=== PATIENT | male | born 1935 | race Caucasian/White ===

== ENCOUNTER 2017-04-29 02:31 | Inpatient (IN) | payer OTHER ==
[~2017-04-29] VITALS: Ht 182.9 cm; Wt 98.3 kg
[~2017-04-29 02:31] MED LIST: ACTOS45 MG PO; ANUSOL-HC21 GM PR; ARTIFICIAL TEAR15 M1 BOTH EYES; ASPIRIN81 M2 PO; Aspirin EC PO; CELEBREX200 MG PO; COBAL-10001000 MCG/2 IM; CRESTOR5 MG PO; CYANOCOBALAM1000 MCG PO; FEOSOL325 MG PO; GLUCOPHAGE850 MG PO; GLUCOTROL XL5 MG PO; Glucophage PO; Hytrin PO; KENLAOG,ARISTOC60 ML TP; LIDODERM 5% P1 PATCH TD; LIPITOR20 MG PO; LISINOPRIL20 MG PO; LOPRESSOR25 MG PO; MELOXICAM7.5 MG PO; MIRALAX PO; MUSE1000 MCG UR; NEURONTIN300 MG PO; NEXIUM40 MG PO; NITROGLYCERIN0.4 MG SL; PANTOPRAZOLE SO40 MG PO; PAXIL20 MG PO; PRAVACHOL40 MG PO; Plavix PO; ULTRAM50 MG PO; VITAMIN D31000 UNIT PO; ZESTRIL,PRINIVI10 M1 PO
[2017-04-29 02:59] LABS: HEMATOCRIT 43.5 % (38.0-50.0); HEMOGLOBIN 14.9 G/DL (12.5-16.6); MCH 31.6 PG (29.0-34.0); MCHC 34.3 G/DL (30.0-36.0); MCV 92.4 FL (86-99); RBC DIS.WIDTH-CV 12.4 % (11.8-14.6); RBC DIS.WIDTH-SD 42.5 % (39-53); RED BLOOD COUNT 4.71 M/uL (4.00-5.50); WHITE BLOOD COUNT 7.9 K/uL (4.1-10.2)
[2017-04-29 03:13] LABS: ALBUMIN 4.3 g/dL (3.2-4.8); CHLORIDE 102 mEq/L (99-109); POTASSIUM 3.7 mEq/L (3.7-5.4); SODIUM 142 mEq/L (136-147)
[2017-04-29 03:15] LABS: GLUCOSE 247 mg/dL (70-99); TOTAL PROTEIN 6.6 g/dL (6.4-8.3)
[2017-04-29 03:17] LABS: TOTAL BILIRUBIN 4.2 mg/dL (0.0-1.0)
[2017-04-29 03:19] LABS: ALKALINE PHOSPHATASE 120 IU/L (3-129); GFR ESTIMATE (CALCULATED) > 59 mL/min/ (58.99-99999)
[2017-04-29 03:20] LABS: UREA NITROGEN (BUN) 20 mg/dL (9-23)
[2017-04-29 03:21] LABS: AST (GOT) 442 IU/L (2-34)
[2017-04-29 03:22] LABS: ALT (GPT) 258 IU/L (3-49); LIPASE 952 U/L (1.0-51.0)
[2017-04-29 03:28] LABS: TROP-I INTERPRETATION NEGATIVE; TROPONIN-I < 0.01 ng/mL (0.0-0.30)
[2017-04-29 03:39] LABS: PLAT.SUFFICIENCY DECREASED; PLATELET COUNT 140 K/uL (156-360)
[2017-04-29] MEDS ORDERED: TYLENOL EXTRA500 MG PO (07:54)
[2017-04-29] MEDS ORDERED: AMMONIUM LACTA224 GM TP (07:58)
[2017-04-29] MEDS ORDERED: MAGNESIUM400 M1 PO (08:00)
[2017-04-29] MEDS ORDERED: ONGLYZA2.5 MG PO (08:02)
[2017-04-29] MEDS ORDERED: UREA85 GM TP (08:03)
[2017-04-29] MEDS ORDERED: GLUCOTROL10 MG PO (08:05)
[2017-04-29] MEDS ORDERED: SINEMET 25-1001 EACH PO (08:06)
[2017-04-29 12:01] VITALS: BP 103/60
[2017-04-29 14:59] LABS: TROP-I INTERPRETATION NEGATIVE; TROPONIN-I < 0.01 ng/mL (0.0-0.30)
[2017-04-29 17:06] VITALS: BP 115/53
[2017-04-29 20:10] VITALS: BP 112/54
[2017-04-29 23:26] VITALS: BP 104/52
[2017-04-30 03:00] VITALS: BP 109/52
[2017-04-30 06:45] LABS: INTER. NORMALIZED RATIO 1.3
[2017-04-30 06:49] LABS: BASOPHIL (%) 0.1 % (0-1); EOSINOPHIL (%) 0.7 % (0-5); EOSINOPHIL COUNT 0.1 K/uL (0-0.3); HEMATOCRIT 35.4 % (38.0-50.0); IMMATURE GRANULOCYTE (%) 0.4 % (0.0-0.7); LYMPHOCYTE (%) 8.8 % (15-42); LYMPHOCYTE COUNT 0.8 K/uL (1.0-2.8); MCH 31.4 PG (29.0-34.0); MCHC 33.3 G/DL (30.0-36.0); MCV 94.1 FL (86-99); MONOCYTE (%) 5.7 % (3-12); MONOCYTE COUNT 0.5 K/uL (0-0.8); NEUTROPHIL (%) 84.3 % (45-76); NEUTROPHIL COUNT 7.5 K/uL (1.8-6.4); PLATELET COUNT 109 K/uL (156-360); RBC DIS.WIDTH-CV 12.8 % (11.8-14.6); RBC DIS.WIDTH-SD 43.9 % (39-53)
[2017-04-30 06:50] LABS: HEMOGLOBIN 11.8 G/DL (12.5-16.6); RED BLOOD COUNT 3.76 M/uL (4.00-5.50)
[2017-04-30 07:24] LABS: ALBUMIN 3.2 G/DL (3.2-4.8); ALKALINE PHOSPHATASE 83 IU/L (3-129); ALT (GPT) 131 IU/L (3-49); AST (GOT) 152 IU/L (2-34); CHLORIDE 102 MEQ/L (99-109); CREATININE 0.9 MG/DL (0.6-1.3); GFR ESTIMATE (CALCULATED) > 59 mL/min/ (58.99-99999); GLUCOSE 125 mg/dL (70-99); POTASSIUM 3.5 MEQ/L (3.7-5.4); SODIUM 136 MEQ/L (136-147); TOTAL BILIRUBIN 5.6 MG/DL (0.0-1.0); UREA NITROGEN (BUN) 17 mg/dL (9-23)
[2017-04-30 07:53] VITALS: BP 124/59
[2017-04-30 13:33] VITALS: BP 180/82
[2017-04-30 15:07] VITALS: BP 155/74
[2017-04-30 20:10] VITALS: BP 160/76
[2017-04-30 23:30] VITALS: BP 161/77
[2017-05-01 06:18] LABS: BASOPHIL (%) 0 % (0-1); EOSINOPHIL (%) 0.1 % (0-5); HEMATOCRIT 35.2 % (38.0-50.0); HEMOGLOBIN 12.1 G/DL (12.5-16.6); IMMATURE GRANULOCYTE (%) 0.5 % (0.0-0.7); LYMPHOCYTE (%) 6.6 % (15-42); LYMPHOCYTE COUNT 0.5 K/uL (1.0-2.8); MCH 31.3 PG (29.0-34.0); MCHC 34.4 G/DL (30.0-36.0); MCV 91.2 FL (86-99); MONOCYTE (%) 5.8 % (3-12); MONOCYTE COUNT 0.5 K/uL (0-0.8); NEUTROPHIL COUNT 7.2 K/uL (1.8-6.4); PLATELET COUNT 126 K/uL (156-360); RBC DIS.WIDTH-CV 12.6 % (11.8-14.6); RBC DIS.WIDTH-SD 41.3 % (39-53); RED BLOOD COUNT 3.86 M/uL (4.00-5.50); WHITE BLOOD COUNT 8.2 K/uL (4.1-10.2)
[2017-05-01 06:49] LABS: ALBUMIN 3.5 G/DL (3.2-4.8); ALKALINE PHOSPHATASE 86 IU/L (3-129); ALT (GPT) 58 IU/L (3-49); CHLORIDE 103 MEQ/L (99-109); CREATININE 0.9 MG/DL (0.6-1.3); GFR ESTIMATE (CALCULATED) > 59 mL/min/ (58.99-99999); GLUCOSE 184 mg/dL (70-99); POTASSIUM 3.8 MEQ/L (3.7-5.4); SODIUM 138 MEQ/L (136-147); TOTAL PROTEIN 5.5 G/DL (6.4-8.3); UREA NITROGEN (BUN) 14 mg/dL (9-23)
[2017-05-01 06:50] LABS: AST (GOT) 55 IU/L (2-34); TOTAL BILIRUBIN 3.5 MG/DL (0.0-1.0)
[2017-05-01 08:15] VITALS: BP 181/78
[2017-05-01 08:29] LABS: LIPASE 6 U/L (1.0-51.0)
[2017-05-01 10:57] LABS: TROP-I INTERPRETATION NEGATIVE; TROPONIN-I < 0.01 ng/mL (0.0-0.30)
[2017-05-01 16:02] VITALS: BP 164/67
[2017-05-02 00:15] VITALS: BP 162/80; BP 188/81
[2017-05-02 06:45] VITALS: BP 175/78
[2017-05-02] MEDS ORDERED: CEFDINIR300 MG PO (12:49)
== END 2017-05-02 14:04 | disposition home or self-care (01) | DRG 444 ==
LOC: EME → EDBD 02:31 → EME 02:31 → 2EAST 04:43 → EDOF 04:43 → ENRESERV 04:45 → 2EAST 12:20
PROVIDERS: Emergency Medicine; Hospitalist; Internal Medicine; Internal Medicine Cardiovascular Disease; Internal Medicine Gastroenterology; Nurse Practitioner Family
PROC: 0FC98ZZ Extirpation of Matter from Common Bile Duct, Via Natural or Artificial Opening Endoscopic (ICD-10-PCS; principal; 2017-04-30)
DX: K80.71 Calculus of gallbladder and bile duct without cholecystitis with obstruction (principal); K85.90 Acute pancreatitis without necrosis or infection, unspecified; I45.2 Bifascicular block; E11.65 Type 2 diabetes mellitus with hyperglycemia; I10 Essential (primary) hypertension; I25.10 Atherosclerotic heart disease of native coronary artery without angina pectoris; E78.5 Hyperlipidemia, unspecified; K21.9 Gastro-esophageal reflux disease without esophagitis; K80.51 Calculus of bile duct without cholangitis or cholecystitis with obstruction; M19.90 Unspecified osteoarthritis, unspecified site; Z96.643 Presence of artificial hip joint, bilateral; Z79.02 Long term (current) use of antithrombotics/antiplatelets; Z79.82 Long term (current) use of aspirin; Z79.84 Long term (current) use of oral hypoglycemic drugs; Z95.5 Presence of coronary angioplasty implant and graft; Z87.891 Personal history of nicotine dependence
CPT/HCPCS: 71046; 74176; 74330; 80053; 82948; 83690; 83880; 84484; 85025; 85027; 85610; 87081; 93005; 99281; 99285; C1757; C1769; J0330; J1100; J1644; J1815; J2250; J2405; J2543; J3010; J7030; J7042; J7050